=== PATIENT | female | born 1990 | race Caucasian/White ===

== ENCOUNTER 2016-08-19 16:09 | Outpatient (CLI) | payer BC ==
[2016-06-27 02:42] VITALS: BP 117/70
[2016-08-19 16:22] LABS: BASOPHILS % 0.4 (0.0-1.5); LYMPHOCYTES # 3.2 # k/uL (0.6-4.0); MEAN CORPUSCULAR HEMOGLOBIN 31.2 pg (28.0-34.0); MONOCYTES # 0.4 # k/uL (0.0-0.9); MONOCYTES % 4.1 % (0.0-11.0); NEUTROPHILS # 4.6 # k/uL (1.4-7.7)
[2016-08-19 16:46] LABS: eGFR (African) > 60; eGFR (Non-African) > 60
== END 2016-08-19 16:10 ==
LOC: LAB 16:09
PROVIDERS: ATTEND Family Medicine
DX: E53.8 Deficiency of other specified B group vitamins (principal); R20.0 Anesthesia of skin
CPT/HCPCS: 36415; 80053; 82607; 84443; 85025

== ENCOUNTER 2017-08-12 17:33 | Emergency (ER) | payer OTHER ==
[2017-08-12 17:50] VITALS: BP 132/84
[2017-08-12] MEDS ORDERED: PROMETHAZINE HCL 25 MG/ML VIAL IM ONE (17:53)
[2017-08-12] MEDS ORDERED: MAGNESIUM CITRATE 296 ML BOTTLE PO ONE (17:53)
[2017-08-12] MEDS ORDERED: diphenhydrAMINE HCL 50 MG/ML VIAL IM ONE (17:53)
[2017-08-12] MEDS ORDERED: KETOROLAC TROMETHAMINE 60 MG/2 ML VIAL IM ONE (17:53)
--- NOTE | 2017-08-12 17:53 | ED Physician Documentation ---
Headache - HISTORIAN Historian: patient - HPI Stated Complaint: Migraine/LLQ pain Chief Complaint: Headache Onset: hours (0500) Timing: worse, persistent New Gradual Onset: No Exposure To: none Severity: moderate Quality: similar to previous Associated Symptoms: sensitivity to light, nausea. denies: fever, chills, sweating, problems with vision, vomiting, neck pain, stiffness, speech problems , weakness, trouble walking, tingling, numbness, dizziness, light-headedness Exacerbated By: light, noise Further Comments: no (27 year old female patient presents with complaint of migraine, constipation and LLQ pain. Patient states she took ibuprofen this after noon with no improvement. Reports ESTRADA started this morning around 0500- 0530, c/o nausea, photophobia, denies vomiting. Last BM 4 days ago.) - ROS NEURO/PSYCH: denies: confusion, anxiety, depression, fainting, other EYES/ENT: denies: sore throat, difficulty swallowing, sinus pain, drainage, other CVS/RESP: none GI/: abdominal pain (LLQ) MS/SKIN/LYMPH: denies: muscle aches, back pain, rash, skin lesions, swollen glands, other all systems neg except as marked: No - PAST HX Medical History: other (fibromyalgia, PCOS, migraines, GERD, depression) Surgical History: cholecystectomy Allergies/Adverse Reactions: Allergies Allergy/AdvReac Type Severity Reaction Status Date / Time sumatriptan [From Imitrex] Allergy Severe Anaphylaxis Verified 08/12/17 17:47 sumatriptan succinate Allergy Severe Anaphylaxis Verified 08/12/17 17:47 [From Imitrex] codeine Allergy Intermediate Nausea/Vomi Verified 08/12/17 17:47 ting hydrocodone bitartrate Allergy Intermediate Nausea/Vomi Verified 08/12/17 17:47 [From Vicodin] ting Penicillins Allergy Intermediate Nausea/Vomi Verified 08/12/17 17:47 ting Home Medications: Ambulatory Orders Medication Instructions Recorded Omeprazole 40 mg PO DAILY 02/11/16 Levonorgestrel [Mirena] 1 each IY D 06/27/16 Clonazepam [Klonopin] 1 mg PO DAILY PRN u2 05/18/17 Escitalopram Oxalate [Lexapro] 20 mg PO DAILY u2 05/18/17 Lamotrigine [Lamictal] 400 mg PO DAILY u2 05/18/17 Verapamil HCl [Verapamil Sr] 1 tab PO HS 28 Days #28 05/18/17 Prochlorperazine Maleate 2 tab PO DAILY 08/12/17 [Compazine] - SOCIAL HX Smoking History: non-smoker - Family HX Family History: denies: none - VITAL SIGNS Vital Signs: Vital Signs Temp Pulse Resp BP Pulse Ox 98.6 F 96 H 14 132/84 98 08/12/17 18:11 08/12/17 18:11 08/12/17 18:11 08/12/17 18:11 08/12/17 18:11 - REVIEWED ASSESSMENTS Nursing Assessment Reviewed: Yes Vitals Reviewed: Yes Progress - Progress Progress: Medicated for constipation with magnesium citrate. Medicated for migraine with toradol, benadryl and phenergan IM. Patient picked up by her parents. ED Results Lab/Radiology - Orders Orders: ED Orders Category Date Time Status Ketorolac Tromethamine [Toradol] Med 08/12/17 17:53 Discontinued 60 mg IM NOW ONE Magnesium Citrate [Citrate of Magnesia] Med 08/12/17 17:53 Discontinued 150 ml PO NOW ONE Promethazine HCl [Phenergan] Med 08/12/17 17:53 Discontinued 25 mg IM NOW ONE diphenhydrAMINE HCL [Benadryl] Med 08/12/17 17:53 Discontinued 25 mg IM NOW ONE Headache Physical Exam - EXAM General Appearance: mild distress, other (no photophobia noted) EENT: no facial swelling, eyes nml inspection, PERRL, nml ENT, pharynx nml Respiratory: no resp distress, chest non-tender, breath sounds normal CVS: reg. rate & rhythm, heart sounds nml Abdomen: no organomegaly, nml bowel sounds, no distention, tenderness (mild c/o pain with palpation of LLQ) Skin: color nml, no rash, warm, nml palp., dry Extremitites: non-tender, normal range of motion, no evidence of injury, no edema, J, IN MOLD COATER - NEURO/PSYCH Higher Functions: alert, oriented x3, nml speech, mood/affect nml Cranial: nml as tested, no evidence of acute CVA Cerebellar: nml as tested, nml gait Sensorimotor: motor nml, sensation nml Discharge Clincal Impression: Migraine Qualifiers: Migraine type: without aura Status migrainosus presence: without status migrainosus Intractability: not intractable Qualified Code(s): G43.009 - Migraine without aura, not intractable, without status migrainosus Constipation Qualifiers: Constipation type: unspecified constipation type Qualified Code(s): K59.00 - Constipation, unspecified Referrals: Emerald Snow MD [Primary Care Provider] - 2 Days Additional Instructions: Rest in a cool dark room repeat 1/2 bottle of magnesium citrate in the morning if no results. Condition: Stable Disposition: 01 HOME, SELF-CARE Decision to Admit: NO Decision Time: 17:52
== END 2017-08-12 18:11 | disposition home or self-care (01) ==
LOC: ED 17:33
DX: K59.00 Constipation, unspecified (principal); G43.009 Migraine without aura, not intractable, without status migrainosus
CPT/HCPCS: 99282

== ENCOUNTER 2017-10-04 07:33 | Day surgery (SDC) | payer OTHER ==
--- NOTE | 2017-10-04 12:54 | GI Report ---
REFERRING PHYSICIAN: Dr. Emerald Snow CYCLE CONSULTANT: Thomas Norton MD PROCEDURE MEDICATION: Propofol as per anesthesia. INDICATIONS: This is a 27 year old who has been having persistent problems of regurgitation. This has been going on for years. It is particularly bad if she lies down and may occur during the day after meals. She denies dysphagia. She did stop smoking recently. She is 5 feet 7 inches and her weight is 113 kilograms and carries that centrally. She has had a previous cholecystectomy. She has been on gabapentin, Klonopin, melatonin, Lamictal and she is on omeprazole now at 40 mg daily. Her history is also positive for fibromyalgia and plantar fasciitis. PROCEDURE PERFORMED: Endoscopy with biopsies. PROCEDURE: An [employer] video endoscope was passed through the esophagus under direct visualization. She does have at least grade 2 esophagitis. No obvious Rivera' s. She does have a small hiatal hernia. The GE junction stays open susceptible to reflux. Biopsies were taken at the GE junction. The stomach is entered. She does have diffuse gastritis and a lot of bile present. Biopsies taken in the antrum for pathology. Duodenal bulb and first and second part of the duodenum exam were normal. FINDINGS: 1. Diffuse bile gastritis. 2. Esophagitis. 3. Lax GE junction. RECOMMENDATIONS: 1. Again, her PPI should be taken about a half hour before a meal either breakfast or supper. 2. She needs to sleep with her head of the bed elevated 3 or 4 inches. 3. Would take an antacid, such as Gaviscon, p.r.n. during the day and always at bedtime. 4. A 10 to 15 pound weight loss would markedly decrease intragastric pressure and frequently improves reflux. 5. Again, would stay away from tobacco products. 6. Follow up biopsies. cc: Dr. Emerald DAILY
== END 2017-10-04 07:35 ==
LOC: OPSURG 07:33
PROVIDERS: ATTEND Internal Medicine Gastroenterology
DX: K29.60 Other gastritis without bleeding (principal); K44.9 Diaphragmatic hernia without obstruction or gangrene; K20.9 Esophagitis, unspecified; Z90.49 Acquired absence of other specified parts of digestive tract
CPT/HCPCS: 81025; J2001; J2704; J7120; 43239; S1016

== ENCOUNTER 2017-12-10 17:41 | Emergency (ER) | payer OTHER ==
[2017-12-10] MEDS: BUPIVACAINE HCL/PF 5 MG/ML 10ML VIAL IJ ONE (18:16)
--- NOTE | 2017-12-10 18:47 | ED Physician Documentation ---
General Adult - HISTORIAN Historian: patient - HPI Stated Complaint: laceration Chief Complaint: Laceration/Recheck/Suture Additional Information: Cut finger on tea maker at work, just prior to arrival in ER. Last tetanus within two years. - ROS CONST: no problems - PAST HX Past History: other (fibromyalgia, migraines) Immunizations: tetanus, UTD Allergies/Adverse Reactions: Allergies Allergy/AdvReac Type Severity Reaction Status Date / Time sumatriptan [From Imitrex] Allergy Severe Anaphylaxis Verified 12/10/17 18:01 sumatriptan succinate Allergy Severe Anaphylaxis Verified 12/10/17 18:01 [From Imitrex] codeine Allergy Intermediate Nausea/Vomi Verified 12/10/17 18:01 ting hydrocodone bitartrate Allergy Intermediate Nausea/Vomi Verified 12/10/17 18:01 [From Vicodin] ting Penicillins Allergy Intermediate Nausea/Vomi Verified 12/10/17 18:01 ting Home Medications: Ambulatory Orders Medication Instructions Recorded Omeprazole 40 mg PO DAILY 02/11/16 Levonorgestrel [Mirena] 1 each IY D 06/27/16 Clonazepam [Klonopin] 1 mg PO DAILY PRN u2 05/18/17 Escitalopram Oxalate [Lexapro] 20 mg PO DAILY u2 05/18/17 Lamotrigine [Lamictal] 400 mg PO DAILY u2 05/18/17 Verapamil HCl [Verapamil Sr] 240 tab PO HS 28 Days #28 05/18/17 - SOCIAL HX Smoking History: non-smoker - FAMILY HX Family History: No - VITAL SIGNS Vital Signs: Vital Signs Temp Pulse Resp BP Pulse Ox 98.4 F 84 22 146/109 97 12/10/17 17:56 12/10/17 17:56 12/10/17 17:56 12/10/17 17:56 12/10/17 17:56 - REVIEWED ASSESSMENTS Nursing Assessment Reviewed: Yes Vitals Reviewed: Yes Procedures Wound Location: upper extremity Wound Length: 2 Wound's Depth, Shape: irregular, flap Wound Explored: clean Betadine Prep?: No (chlorhexadine) Anesthesia: 0.5% Sensorcaine Volume of Anesthetic: 3 Wound Repaired With: sutures Suture Size/Type: 4:0, nylon Number of Sutures: 4 Layer Closure?: No Sterile Dressing Applied?: Yes Splint Applied?: Yes Type of Splint Applied: alukmifoam Sling Applied?: No ED Results Lab/Radiology - Orders Orders: ED Orders Category Date Time Status Apply occlusive dressing D Care 12/10/17 18:45 Ordered Finger Splint 1T Care 12/10/17 18:45 Ordered Bupivacaine HCl/Pf [Marcaine 0.5%] Med 12/10/17 18:07 Discontinued 50 mg IJ NOW ONE Neomycin/Bacitracin/Polymyxinb [Triple Antibiotic Med 12/10/17 18:45 Once Ointment] 1 each TP NOW ONE General Adult Physical Exam - PHYSICAL EXAM GENERAL APPEARANCE: mild distress EENT: eye inspection normal, ENT inspection normal NECK: normal inspection RESPIRATORY: no resp distress BACK: other (movements w/o pain) SKIN: warm/dry, normal color, other (2 cm lac right 2nd finger, distal phalanx, dorsal surface) EXTREMITIES: no evidence of injury (ezxcept right 2nd finger. Full ROM end left finger) NEURO: CN's nml as tested, motor nml, sensation nml, cognition normal Discharge Clincal Impression: Finger laceration Referrals: Emerald Snow MD [Primary Care Provider] - 2 Days Additional Instructions: Keep the right hand elevated to the level of your waist or higher for at least 3 days to minimize bleeding and swelling and discomfort. Keep the stitches clean and dry. After 24 hours, you can wash your hands or shower, but do not soak the stitches. Ask your provider to remove the stitches in 7 days. Return to the ER immediately if the finger seems to be infected. Condition: Good Disposition: 01 HOME, SELF-CARE Decision to Admit: NO Decision Time: 18:50
[2017-12-10] MEDS: NEOMYCIN/BACITRACIN/POLYMYXINB 1 EACH OINT.PACK TP ONE (18:50)
[2017-12-10 19:02] VITALS: BP 132/87
== END 2017-12-10 19:01 | disposition home or self-care (01) ==
LOC: ED 17:41
DX: S61.210A Laceration without foreign body of right index finger without damage to nail, initial encounter (principal); X58.XXXA Exposure to other specified factors, initial encounter; Y92.9 Unspecified place or not applicable; Y93.G3 Activity, cooking and baking; Y99.9 Unspecified external cause status; Z04.2 Encounter for examination and observation following work accident
CPT/HCPCS: 12001; 96372; J3490

== ENCOUNTER 2018-07-14 12:52 | Emergency (ER) | payer OTHER ==
[2018-07-14 13:07] VITALS: BP 127/94
--- NOTE | 2018-07-14 13:15 | ED Physician Documentation ---
Headache - HISTORIAN Historian: patient - HPI Stated Complaint: migraine Chief Complaint: Headache Onset: days ago (1) Timing: still present New Gradual Onset: No Exposure To: none Severity: moderate Quality: similar to previous Associated Symptoms: nausea. denies: fever, chills, vomiting, speech problems, dizziness Preceding Symptoms: visual disturbance Further Comments: yes (She has a long history of migraines and her treatment was some type of injection which she states had the migraines controlled however recently her insurance changed and the injections were denied and she has had an increase in symptoms. She states she tried all her home abortive therapy with no improvement. No head injury. No fever. She has nausea no vomiting) Last known Well Code/Unknown Code: Unknown - ROS NEURO/PSYCH: anxiety, depression CVS/RESP: denies: chest pain, shortness of breath GI/: denies: problems urinating MS/SKIN/LYMPH: denies: rash all systems neg except as marked: Yes - PAST HX Medical History: other (fibromyalgia and migraines ) Allergies/Adverse Reactions: Allergies Allergy/AdvReac Type Severity Reaction Status Date / Time sumatriptan [From Imitrex] Allergy Severe Anaphylaxis Verified 07/14/18 13:01 sumatriptan succinate Allergy Severe Anaphylaxis Verified 07/14/18 13:01 [From Imitrex] codeine Allergy Intermediate Nausea/Vomi Verified 07/14/18 13:01 ting hydrocodone bitartrate Allergy Intermediate Nausea/Vomi Verified 07/14/18 13:01 [From Vicodin] ting Penicillins Allergy Intermediate Nausea/Vomi Verified 07/14/18 13:01 ting Home Medications: Ambulatory Orders Medication Instructions Recorded Verapamil HCl [Verapamil Sr] 240 tab PO HS 28 Days #28 05/18/17 Esomeprazole Magnesium 20 mg PO DAILY 03/01/18 Loratadine [Claritin] 10 mg PO DAILY u2 03/01/18 Prochlorperazine Maleate 10 mg PO TID u2 03/01/18 Zonisamide 25 mg PO BID av 03/01/18 Clonazepam 1 tab PO PRN PRN 07/14/18 Gabapentin [Neurontin] 1 tab PO TID 07/14/18 Vilazodone HCl [Viibryd] 1 tab PO DAILY 07/14/18 - SOCIAL HX Smoking History: non-smoker Alcohol Use: none Drug Use: none - Family HX Family History: none - VITAL SIGNS Vital Signs: Vital Signs Temp Pulse Resp BP Pulse Ox 97.1 F L 89 15 127/94 96 07/14/18 14:30 07/14/18 14:30 07/14/18 14:30 07/14/18 14:30 07/14/18 14:30 - REVIEWED ASSESSMENTS Nursing Assessment Reviewed: Yes Vitals Reviewed: Yes Progress - Progress Progress: 1405: symptoms are improving. Plan to discharge agreeable DG ED Results Lab/Radiology - Lab Results Lab Results: Lab Results 07/14/18 07/14/18 13:27 13:17 WBC 9.70 K/ul K/ul (4.00-12.00) RBC 4.68 M/ul M/ul (3.90-5.20) Hgb 14.2 g/dL g/dL (12.0-16.0) Hct 42.8 % % (34.5-46.5) MCV 92.0 fl fl (80.0-100.0) MCH 30.3 pg pg (28.0-34.0) MCHC 33.1 g/dL g/dL (30.0-36.0) RDW 12.7 % % (11.3-14.3) Plt Count 347 K/mm3 K/mm3 (130-400) Neut % (Auto) 54.3 % % (39.0-79.0) Lymph % (Auto) 32.8 % % (16.0-50.0) Beauregard % (Auto) 7.0 % % (0.0-11.0) Eos % (Auto) 5.4 % % (0.0-6.8) Baso % (Auto) 0.5 (0.0-1.5) Neut # (Auto) 5.3 # k/uL # k/uL (1.4-7.7) Lymph # (Auto) 3.2 # k/uL # k/uL (0.6-4.0) Bea[place]gard # (Auto) 0.7 # k/uL # k/uL (0.0-0.9) Eos # (Auto) 0.5 # k/uL # k/uL (0.0-0.6) Baso # (Auto) 0.1 # k/uL # k/uL (0.0-0.5) Sodium 141 mmol/L mmol/L (136-145) Potassium 4.2 mmol/L mmol/L (3.5-5.1) Chloride 108 mmol/L H mmol/L (98-107) Carbon Dioxide 24 mmol/L mmol/L (22-30) BUN 8 mg/dL mg/dL (7-17) Creatinine 0.70 mg/dL mg/dL (0.52-1.04) Estimated Creat Clear 264 Est GFR ( Amer) > 60 (60 - ) Est GFR (Non-Af Amer) > 60 (60 - ) Glucose 105 mg/dL mg/dL (74-106) Calcium 9.0 mg/dL mg/dL (8.4-10.2) Total Bilirubin 0.3 mg/dL mg/dL (0.2-1.3) AST 44 U/L U/L (15-46) ALT 39 U/L U/L (13-69) Alkaline Phosphatase 98 U/L U/L (38-126) Total Protein 6.8 g/dL g/dL (6.3-8.2) Albumin 4.4 g/dL g/dL (3.5-5.0) - Orders Orders: ED Orders Category Date Time Status IV Started NOW Care 07/14/18 13:17 Active CBC/PLATELET/DIFF Stat Lab 07/14/18 13:17 Completed CMP Stat Lab 07/14/18 13:27 Completed 0.9 % Sodium Chloride [Normal Saline] 500 ml Med 07/14/18 13:17 Discontinued IV NOW Dexamethasone Sodium Phosphate [Decadron] Med 07/14/18 13:17 Discontinued 4 mg IVP NOW ONE Ketorolac Tromethamine [Toradol] Med 07/14/18 13:18 Discontinued 30 mg IVP NOW ONE Ondansetron HCl/Pf [Zofran 4 mg/2 ml] Med 07/14/18 13:18 Discontinued 4 mg IVP NOW ONE Headache Physical Exam - EXAM General Appearance: no acute distress, alert EENT: no facial swelling, PERRL, nml ENT, pharynx nml. No: pain over sinuses Respiratory: no resp distress, chest non-tender, breath sounds normal CVS: reg. rate & rhythm, heart sounds nml Abdomen: non-tender Skin: color nml, no rash Extremitites: non-tender, normal range of motion, no evidence of injury, no edema - NEURO/PSYCH Higher Functions: alert, oriented x3 Cranial: nml as tested Sensorimotor: motor nml, sensation nml Discharge Clincal Impression: Migraine aura without headache Referrals: Emerald Snow MD [Primary Care Provider] - 2 Days Comments: 1. Continue meds at home for migraine 2. Notify PCP of increasing migraine and decrease in med effectiveness 3. Increase fluids 4. Return to ER for any concerns Condition: Stable Disposition: 01 HOME, SELF-CARE Decision to Admit: NO Date of Decison to Admit: 07/14/18 Decision Time: 14:08
[2018-07-14] MEDS ORDERED: 0.9 % SODIUM CHLORIDE 500 ML IV ONE (13:17)
[2018-07-14] MEDS ORDERED: DEXAMETHASONE SOD PHOS 4 MG/ML VIAL IVP ONE (13:17)
[2018-07-14] MEDS ORDERED: KETOROLAC TROMETHAMINE 30 MG/1ML VIAL IVP ONE (13:18)
[2018-07-14] MEDS ORDERED: ONDANSETRON HCL/PF 4 MG/ 2ML VIAL IVP ONE (13:18)
[2018-07-14 13:44] LABS: MEAN CORPUSCULAR HEMOGLOBIN 30.3 pg (28.0-34.0)
[2018-07-14 13:46] LABS: BASOPHILS % 0.5 (0.0-1.5); EOSINOPHILS % 5.4 % (0.0-6.8); NEUTROPHILS # 5.3 # k/uL (1.4-7.7)
[2018-07-14 14:17] LABS: eGFR (Non-African) > 60
== END 2018-07-14 14:30 | disposition home or self-care (01) ==
LOC: ED 12:52
DX: G43.009 Migraine without aura, not intractable, without status migrainosus (principal)
CPT/HCPCS: 36415; 80053; 85025; 96365; 96375; 99282; 99284; J1100; J1885; J2405; J7060; S1016

== ENCOUNTER 2018-09-12 01:42 | Emergency (ER) | payer OTHER ==
[2018-09-12 02:09] VITALS: BP 115/74
--- NOTE | 2018-09-12 02:17 | ED Physician Documentation ---
Upper Respiratory Symptoms - HISTORIAN Historian: patient - HPI Stated Complaint: sinus congestion,rash on left leg Chief Complaint: Cough/ Upper Respiratory Additional Information: Patient presents to ER with a 5 day history of cough, nasal congestion, sinus pressure and nausea. She also states she use Stein on her legs and has a chemical burn from it. Onset: days ago (5) Duration: constant Context: denies: recent foreign travel Associated Symptoms: chills, runny nose, sinus pain Further Comments: no - ROS CONST/EYES: denies: weakness CVS/RESP: denies: shortness of breath LYMPH: denies: swollen glands GI/: nausea NEURO/PSYCH: denies: dizziness MS/SKIN: muscle aches - PAST HX Lung Disease: none PE Risk Factors: none Surgeries/Procedures: none Allergies/Adverse Reactions: Allergies Allergy/AdvReac Type Severity Reaction Status Date / Time sumatriptan [From Imitrex] Allergy Severe Anaphylaxis Verified 09/12/18 02:16 sumatriptan succinate Allergy Severe Anaphylaxis Verified 09/12/18 02:16 [From Imitrex] codeine Allergy Intermediate Nausea/Vomi Verified 09/12/18 02:16 ting hydrocodone bitartrate Allergy Intermediate Nausea/Vomi Verified 09/12/18 02:16 [From Vicodin] ting Penicillins Allergy Intermediate Nausea/Vomi Verified 09/12/18 02:16 ting Home Medications: Ambulatory Orders Medication Instructions Recorded Verapamil HCl [Verapamil Sr] 240 tab PO HS 28 Days #28 05/18/17 Gabapentin [Neurontin] 1 tab PO TID 07/14/18 Vilazodone HCl [Viibryd] 1 tab PO DAILY 07/14/18 Aripiprazole [Abilify] 10 mg PO DAILY 09/12/18 Levofloxacin [Levaquin] 500 mg PO DAILY #5 tablet 09/12/18 Ondansetron HCl Rapdis [Zofran Odt] 4 mg PO Q8 PRN #15 tab 09/12/18 Thyroid,Pork [[place] Thyroid] 30 mg PO DAILY 09/12/18 - SOCIAL HX Smoking History: non-smoker Alcohol Use: none Drug Use: none - FAMILY HX Family History: none - VITAL SIGNS Vital Signs: Vital Signs Temp Pulse Resp BP Pulse Ox 97.5 F L 91 H 18 115/74 96 09/12/18 01:43 09/12/18 01:43 09/12/18 01:43 09/12/18 01:43 09/12/18 01:43 - REVIEWED ASSESSMENTS Nursing Assessment Reviewed: Yes Vitals Reviewed: Yes ED Results Lab/Radiology - Orders Orders: ED Orders Category Date Time Status Levofloxacin [Levaquin] Med 09/12/18 02:18 Once 500 mg PO NOW ONE Ondansetron HCl Rapdis [Zofran Odt] Med 09/12/18 02:18 Once 4 mg PO NOW ONE Upper Respiratory Symptoms - EXAM General Appearance: alert EENT: pain over sinuses, maxillary Neck: normal inspection, supple Respiratory: no resp. distress, breath sounds nml, speaks full sentences. No: respiratory distress Abdomen: non-tender, nml bowel sounds, no distention CVS: reg rate & rhythm, heart sounds normal Skin: warm,dry Extremities: non-tender, normal range of motion Neuro/Psych: oriented x3, mood/affect nml Discharge Clincal Impression: Acute maxillary sinusitis Qualifiers: Recurrence: non-recurrent Qualified Code(s): J01.00 - Acute maxillary sinusitis, unspecified Prescriptions: Levofloxacin [Levaquin] 500 mg PO DAILY #5 tablet Ondansetron HCl Rapdis [Zofran Odt] 4 mg PO Q8 PRN #15 tab PRN Reason: nausea/vomiting Referrals: Emerald Snow MD [Primary Care Provider] - 2 Days Condition: Stable Disposition: 01 HOME, SELF-CARE Decision to Admit: NO Date of Decison to Admit: 09/12/18 Decision Time: 02:26
[2018-09-12] MEDS: ONDANSETRON HCL 4 MG TAB.RAPDIS PO ONE (02:23)
[2018-09-12] MEDS: LEVOFLOXACIN 500 MG TABLET PO ONE (02:23)
== END 2018-09-12 02:25 | disposition home or self-care (01) ==
LOC: ED 01:42
DX: J01.00 Acute maxillary sinusitis, unspecified (principal)
CPT/HCPCS: 99283; A9270

== ENCOUNTER 2018-10-27 14:11 | Outpatient (CLI) | payer OTHER ==
--- NOTE | 2018-11-01 21:46 | CONSULTATION REPORT ---
SUBJECTIVE: Arelis Gates is a 28-year-old female who presented to the clinic today for a first visit with me for an ingrown toenail on her right great toe. The patient states that she has had this for a little bit and has repeatedly over the years had multiple times ingrown toenails to the right great toe and the left great toe. The patient does not admit to any drainage, purulence or anything of that nature at this time. She does admit to pain, though, in the medial border of the right great toenail. She does not admit to any fevers, chills, nausea, vomiting, shortness of breath or chest pain. She denies being diabetic. SHE DOES ADMIT TO ALLERGIES SUCH IMITREX, PENICILLINS, CODEINE, AND VICODIN. OBJECTIVE: Vitals: Temperature 97.9 degrees Fahrenheit, heart rate 90, respiration rate 16, blood pressure 128/80. O2 saturation is 97% on room air. Vascular: 2+ DP and PT pulses, right foot. Capillary refill time is less than 3 seconds to the great toe, right foot. There is mild edema noted on the medial border of the right great toenail. Dermatologic: There is no purulence, malodor, erythema or ecchymosis noted right great toe or right foot at all. There is no open wound. There is slight incurvation perhaps of the medial border of the right great toenail. Musculoskeletal: There is pain on palpation noted of the right great toenail, medial border. There is no pain on palpation noted elsewhere on the right or left foot. There are no other gross abnormalities noted at this time. Neurologic: Light touch sensation is intact to the toes, bilateral feet. ASSESSMENT AND PLAN: Onychocryptosis, right hallux, medial border. The risks and benefits of the procedure including bleeding, infection and recurrence of ingrown toenail were discussed with the patient as well as options for a temporary versus permanent partial nail avulsion and the patient agreed both by written and verbal consent to go forward with a partial nail avulsion with chemical matrixectomy of the right great toenail, medial border. PROCEDURE #1: Partial nail avulsion with chemical matrixectomy of the right great toe medial border performed. An alcohol swab was utilized to cleanse the toe and 7 mL of a 1:1 mix of 2% lidocaine plain and 0.5% Marcaine plain were injected into the right great toe. The foot was then cleansed with Betadine prep and then exsanguinated and a tourniquet was applied to the right great toe. At this time a partial nail avulsion was performed on the medial border followed by phenol application in increments of 45 seconds, 30 seconds and 30 seconds, totaling 3 applications. The tourniquet was then released and a prompt hyperemic response was noted to the right great toe. 70% isopropyl alcohol was then used to flush out the acid in its entirety over the right great toe as well as the distal medial foot. The site was then cleansed with gauze and dressings applied consisting of Silvadene in the wound base, 4x4 gauze, 2 inch Judy and 1 inch Coban beginning on the toe and ending on the distal forefoot to help hold it on the toe. Instructions both written and verbal were given to the patient regarding postprocedure care. Return to the clinic for follow-up office visit in 1 week in the [facility] for follow-up of the procedure and also for further discussion of any other foot problems that she would like to discuss, as she has requested. We will then see the patient likely 2 or 3 weeks after that to follow up on the right great toe procedure site. The patient had no further questions and was grateful for the visit today. Carlos WhitakerP.M. (Dictated/Not Signed) Sophy Job#: [id number] MTDD
== END 2018-10-27 14:13 ==
LOC: POD 14:11
PROVIDERS: ATTEND Podiatrist Foot & Ankle Surgery
DX: L60.0 Ingrowing nail (principal)
CPT/HCPCS: 11730; 99212; A4554

== ENCOUNTER 2018-11-05 05:07 | Emergency (ER) | payer OTHER ==
[2018-11-05] MEDS: ONDANSETRON HCL 4 MG TAB.RAPDIS PO ONE (05:45)
[2018-11-05] MEDS: diphenhydrAMINE HCL 25 MG TABLET PO ONE (05:45)
[2018-11-05] MEDS: KETOROLAC TROMETHAMINE 60 MG/2 ML VIAL IM ONE (05:45)
--- NOTE | 2018-11-05 05:59 | ED Physician Documentation ---
Headache - HISTORIAN Historian: patient - HPI Stated Complaint: "I have a migraine" Chief Complaint: Headache Onset: days ago Timing: worse Severity: moderate Quality: similar to previous, tightness Associated Symptoms: nausea Exacerbated By: light, noise, movement - ROS NEURO/PSYCH: denies: confusion, anxiety, depression, fainting, other EYES/ENT: denies: sore throat, difficulty swallowing, sinus pain, drainage, other CVS/RESP: none GI/: denies: abdominal pain, diarrhea, problems urinating, incontinence, other MS/SKIN/LYMPH: denies: muscle aches, back pain, rash, skin lesions, swollen glands, other all systems neg except as marked: Yes - PAST HX Medical History: migraines, other (tachycardia) Surgical History: cholecystectomy Allergies/Adverse Reactions: Allergies Allergy/AdvReac Type Severity Reaction Status Date / Time sumatriptan [From Imitrex] Allergy Severe Anaphylaxis Verified 11/05/18 05:20 sumatriptan succinate Allergy Severe Anaphylaxis Verified 11/05/18 05:20 [From Imitrex] codeine Allergy Intermediate Nausea/Vomi Verified 11/05/18 05:20 ting hydrocodone bitartrate Allergy Intermediate Nausea/Vomi Verified 11/05/18 05:20 [From Vicodin] ting Penicillins Allergy Intermediate Nausea/Vomi Verified 11/05/18 05:20 ting Home Medications: Ambulatory Orders Medication Instructions Recorded Verapamil HCl [Verapamil Sr] 240 tab PO HS 28 Days #28 05/18/17 Gabapentin [Neurontin] 1 tab PO TID 07/14/18 Vilazodone HCl [Viibryd] 1 tab PO DAILY 07/14/18 Aripiprazole [Abilify] 10 mg PO DAILY 09/12/18 Ondansetron HCl Rapdis [Zofran Odt] 4 mg PO Q6 PRN #30 tab 11/05/18 - SOCIAL HX Smoking History: cigarettes - Family HX Family History: denies: none - VITAL SIGNS Vital Signs: Vital Signs Temp Pulse Resp BP Pulse Ox 98.2 F 67 12 116/72 99 11/05/18 06:10 11/05/18 06:10 11/05/18 06:10 11/05/18 06:10 11/05/18 06:10 - REVIEWED ASSESSMENTS Nursing Assessment Reviewed: Yes Vitals Reviewed: Yes Progress - Progress Progress: Patient is familiar to this provider; she has done very well with fluids, toradol, Benadryl and antiemetic in the past. patient requesting "what you did last time". At discharge - headache improved; reviewed discharge instructions; verbalized understanding. ED Results Lab/Radiology - Orders Orders: ED Orders Category Date Time Status Ketorolac Tromethamine [Toradol] Med 11/05/18 05:40 Discontinued 60 mg IM NOW ONE Ondansetron HCl Rapdis [Zofran Odt] Med 11/05/18 05:40 Discontinued 4 mg PO NOW ONE diphenhydrAMINE HCL [Benadryl] Med 11/05/18 05:40 Discontinued 25 mg PO NOW ONE Headache Physical Exam - EXAM General Appearance: moderate distress EENT: no facial swelling, eyes nml inspection, PERRL, nml ENT, pharynx nml, other (photophobia) Respiratory: no resp distress, chest non-tender, breath sounds normal CVS: reg. rate & rhythm, heart sounds nml Abdomen: non-tender, no organomegaly, nml bowel sounds, no distention Skin: color nml, no rash, warm, nml palp., dry - NEURO/PSYCH Higher Functions: alert, oriented x3, nml speech, mood/affect nml Cranial: nml as tested, no evidence of acute CVA Cerebellar: nml as tested, nml gait Sensorimotor: motor nml, sensation nml Discharge Clincal Impression: Migraine Qualifiers: Migraine type: without aura Status migrainosus presence: without status migrainosus Intractability: not intractable Qualified Code(s): G43.009 - Migra ine without aura, not intractable, without status migrainosus Prescriptions: Ondansetron HCl Rapdis [Zofran Odt] 4 mg PO Q6 PRN #30 tab PRN Reason: Nausea / Vomiting Referrals: Joss Peña MD [Primary Care Provider] - 2 Days Additional Instructions: Rest in a cool dark room. 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 Condition: Stable Disposition: 01 HOME, SELF-CARE Decision to Admit: NO Decision Time: 06:00
[2018-11-05 06:16] VITALS: BP 116/72
== END 2018-11-05 06:15 | disposition home or self-care (01) ==
LOC: ED 05:07
DX: G43.909 Migraine, unspecified, not intractable, without status migrainosus (principal)
CPT/HCPCS: 96372; 99283; 99284; A9270; J1885; Q0163

== ENCOUNTER 2018-12-31 10:00 | Emergency (ER) | payer OTHER ==
[2018-12-31 10:16] VITALS: BP 134/84
--- NOTE | 2018-12-31 11:01 | ED Physician Documentation ---
Headache - HISTORIAN Historian: patient - HPI Stated Complaint: headache Chief Complaint: Headache Additional Information: 28yo female whostates [place] ahs ahd migrain headaches for years. Occurrs 3-4 times a week. Has had one for 3 days and not getting better. Has been using Ibuprofem, benaldry and zofran . Patient has a headache on the right temporal area, having some nausea and vomiting. No head truama recently. Onset: days ago (3 days) Timing: gradual Exposure To: denies: CO exposure, tick bite(s), recent head injury Severity: moderate Quality: similar to previous (more intense), throbbing Associated Symptoms: denies: fever, chills Exacerbated By: light, movement Further Comments: no - ROS NEURO/PSYCH: denies: confusion EYES/ENT: denies: sore throat, sinus pain CVS/RESP: denies: chest pain, shortness of breath, cough MS/SKIN/LYMPH: denies: muscle aches, rash - PAST HX Medical History: other (fibromyalgia) Surgical History: cholecystectomy Immunizations: referred to PCP Allergies/Adverse Reactions: Allergies Allergy/AdvReac Type Severity Reaction Status Date / Time sumatriptan [From Imitrex] Allergy Severe Anaphylaxis Verified 12/31/18 10:16 sumatriptan succinate Allergy Severe Anaphylaxis Verified 12/31/18 10:16 [From Imitrex] codeine Allergy Intermediate Nausea/Vomi Verified 12/31/18 10:16 ting hydrocodone bitartrate Allergy Intermediate Nausea/Vomi Verified 12/31/18 10:16 [From Vicodin] ting Penicillins Allergy Intermediate Nausea/Vomi Verified 12/31/18 10:16 ting Home Medications: Ambulatory Orders Medication Instructions Recorded Verapamil HCl [Verapamil Sr] 240 tab PO HS 28 Days #28 05/18/17 Gabapentin [Neurontin] 1 tab PO TID 07/14/18 Vilazodone HCl [Viibryd] 1 tab PO DAILY 07/14/18 Aripiprazole [Abilify] 10 mg PO DAILY 09/12/18 Ondansetron HCl Rapdis [Zofran Odt] 4 mg PO Q6 PRN #30 tab 11/05/18 - SOCIAL HX Smoking History: less than 1 pack/day Alcohol Use: none Drug Use: none - Family HX Family History: none - VITAL SIGNS Vital Signs: Vital Signs Temp Pulse Resp BP Pulse Ox 98.7 F 89 19 134/84 97 12/31/18 10:12 12/31/18 10:12 12/31/18 10:12 12/31/18 10:12 12/31/18 10:12 ED Results Lab/Radiology - Orders Orders: ED Orders Category Date Time Status Ketorolac Tromethamine [Toradol] Med 12/31/18 11:03 Discontinued 60 mg IM NOW ONE Ondansetron HCl Rapdis [Zofran Odt] Med 12/31/18 11:03 Discontinued 4 mg PO NOW ONE diphenhydrAMINE HCL [Benadryl] Med 12/31/18 11:03 Discontinued 25 mg PO NOW ONE Headache Physical Exam - EXAM General Appearance: alert, mild distress EENT: no facial swelling, eyes nml inspection, PERRL, nml ENT. No: tender temporal artery, pain over sinuses, pale conjunctivae, abnml fundi, abnml papilledema, unequal pupils Neck: normal inspection, supple. No: lymphadenopathy, stiff neck Respiratory: no resp distress, chest non-tender, breath sounds normal. No: wheezes, rales, rhonchi CVS: reg. rate & rhythm, heart sounds nml Skin: color nml, no rash - NEURO/PSYCH Higher Functions: alert, oriented x3, nml speech, mood/affect nml Cranial: nml as tested, no evidence of acute CVA Cerebellar: nml as tested Sensorimotor: motor nml, sensation nml Discharge Clincal Impression: Migraine Qualifiers: Migraine type: without aura Status migrainosus presence: without status migrainosus Intractability: not intractable Qualified Code(s): G43.009 - Migraine without aura, not intractable, without status migrainosus Referrals: Joss Peña MD [Primary Care Provider] - 2 Days Additional Instructions: Home and rest. Work excuse given for today. Continue with present meds for treatment of your reoccurring headaches. Condition: Stable Disposition: 01 HOME, SELF-CARE Decision to Admit: NO Date of Decison to Admit: 12/31/18 Decision Time: 11:39
[2018-12-31] MEDS: KETOROLAC TROMETHAMINE 60 MG/2 ML VIAL IM ONE (11:19)
[2018-12-31] MEDS: diphenhydrAMINE HCL 25 MG TABLET PO ONE (11:19)
[2018-12-31] MEDS: ONDANSETRON HCL 4 MG TAB.RAPDIS PO ONE (11:19)
== END 2018-12-31 11:50 | disposition home or self-care (01) ==
LOC: ED 10:00
DX: G43.909 Migraine, unspecified, not intractable, without status migrainosus (principal)
CPT/HCPCS: 96372; 99282; 99284; A9270; J1885; Q0163

== ENCOUNTER 2019-01-19 08:51 | Outpatient (CLI) | payer OTHER ==
--- NOTE | 2019-01-24 10:19 | OP Clinic Progress Note ---
DATE OF VISIT: 01/19/2019 SUBJECTIVE: Arelis Gates is a 28-year-old female presenting to clinic today with her mother in the room. She is here for follow up of a recent right great toenail medial nail border partial nail avulsion with chemical matrixectomy. On our last visit it was improving greatly and she is having no pain at this time. She does admit to having plantar fasciitis/heel pain that we have discussed previously. She is having this to both heels, but mainly on the left still. She has been doing stretching exercises, inserts, ibuprofen, night splint and she feels that she may be having slight improvement, but she is still having significant pain especially first step out of bed in the mornings. She does admit that if she takes a break during the day and gets off of it. She is then usually pretty good for the rest of the day. She does not admit to any fever, chills, nausea, vomiting, shortness of breath or chest pain at this time. She does not admit to any itching or problems in the feet or heels at this time. She does not admit to any allergies that would be part of the steroid injection. The patient also states that she is having some increased pain on the left great toenail medial border. It is along the entire aspect of the nail edge on the medial border. The patient does not want to have this treated yet as she would like to focus on the heels right now and we will consider doing procedure on this area later. OBJECTIVE: Vitals: Temperature 98.7 degrees Fahrenheit, heart rate 88, respiration rate 18, blood pressure 130/78. O2 saturation is 98% on room air. Vascular: A 2+ DP and PT pulses, bilateral feet. Capillary refill time is less than 3 seconds to the toes bilaterally. There is no edema noted bilaterally. Dermatologic: There is slight pink irritation at the medial border of the left great toenail. There are no other concerning areas on the right great toenail area or anywhere else. There are no other open lesions or erythema or ecchymosis noted. Musculoskeletal: There is pain on palpation noted significantly at the plantar medial calcaneal tubercle of bilateral heels. The left is slightly more painful than the right. There is some pain on palpation along the medial border of the left great toenail along with entire medial border of the nail. There are no other gross abnormalities noted bilaterally. Per exam today the ankle dorsiflexion on the right is at about 10 degrees with the knee extended and only about 5 degrees to the left with the knee extended and again both improved with the knee flexed bilaterally an additional 5 degrees or so. The left is still less stretched out than the right. Neurologic: Light touch sensation is intact to the toes bilaterally. ASSESSMENT AND PLAN: 1. Plantar fasciitis, bilateral heels. 2. Follow up of right hallux medial nail border partial nail avulsion with chemical matrixectomy (post procedure). 3. New onset onychocryptosis of the left hallux medial nail border. Risk and benefits of the procedure including bleeding, infection steroid flare were discussed with the patient and consent obtained for her steroid injections of the left and right heels today. The consent was signed and placed in the chart. PROCEDURE #1 and #2: A steroid injection into the left and right plantar fascia origin was performed today without incident. Alcohol swab was utilized to cleanse the plantar medial calcaneal tubercle area and an injection consisting of 1 cc of 2% Lidocaine plain, 1 cc of 0.5% Marcaine plain, 0.5 cc of dexamethasone 4 mg/mL and 0.5 cc of Kenalog 40 mg/mL was injected into the right heel area. This then had hemostasis obtained with pressure and a Band-Aid was applied. An identical procedure was performed on the left plantar medial calcaneal tubercle area. This is not a procedure, but a very small slant-back trimming of the left great toenail medial nail edge was performed today to try and provide some relief in the meantime and a triple antibiotic ointment and a Band-Aid was applied there and was encouraged to be used and changed daily for three or four days just to protect the rough skin where the nail was removed from. The patient has no further questions or concerns and we will plan on seeing the patient for a follow-up visit in three to four weeks at the clinic for follow up of the heel injections. The patient was encouraged to come and see me sooner here in outpatient if she chooses to have a procedure done on the left great toenail medial border if this slant-back trimming does not help enough. The patient has no further questions or concerns and we will see her in three to four weeks. She tolerated the procedures beautifully today. Carlos WhitakerPSunilM.(Dictated/not signed) /[employer] [id number] /mab MTDD
== END 2019-01-19 09:20 ==
LOC: POD 08:51
PROVIDERS: ATTEND Podiatrist Foot & Ankle Surgery
DX: M72.2 Plantar fascial fibromatosis (principal); L60.0 Ingrowing nail; Z09 Encounter for follow-up examination after completed treatment for conditions other than malignant neoplasm

== ENCOUNTER 2019-03-23 13:07 | Outpatient (CLI) | payer OTHER ==
--- NOTE | 2019-03-27 16:48 | OP Clinic Progress Note ---
DATE OF VISIT: 03/23/2019 SUBJECTIVE: Arelis is a 29-year-old female presenting to the clinic today for a follow up of left plantar fasciitis and left gastrocnemius equinus. The patient has been trying a night splint which seems to be too large according to her and she has been doing lots of stretching, etc., and is still having a difficult time getting her left heel to feel better. Her right heel is doing great since the bilateral heel injections done about two months ago. The left heel, however, has continued to have lots of pain. It got better for a little bit but then became just as bad soon after. She does not admit to any other issues and does not admit to any fevers, chills, nausea, vomiting, shortness of breath or chest pain. She is here for a repeat steroid injection in the left plantar fascia as discussed earlier this week in clinic. OBJECTIVE: Vitals: Temperature 98.0 degrees Fahrenheit, heart rate 93, respiration rate 16, blood pressure 107/69. O2 saturation is 97% on room air. Vascular: 2+ DP and PT pulses, left foot. Capillary refill time is less than 3 seconds to the toes of the left foot. Mild edema noted left heel still. Dermatologic: There is no erythema or ecchymosis or open lesions or hyperkeratosis noted. No other concerning skin lesions are noted in the left lower extremity. Musculoskeletal: Pain on palpation is still quite moderate to severe at the plantar medial left heel and centrally slightly. There is no pain at the posterior left heel. The patient also has limited ankle dorsiflexion to about 0 to 2 degrees in the left foot with the knee extended. There are no other gross abnormalities noted in the left foot. Neurologic: Light touch sensation is intact to the toes, left foot. The right was not examined today. ASSESSMENT AND PLAN: 1. Plantar fasciitis left heel M72.2. 2. Gastrocnemius equinus, left lower extremity M21.6X2. 3. Gastrocnemius equinus, right lower extremity M21.6X1. PROCEDURE #1: Steroid injection to the left heel plantar fascia was performed today. Risks and benefits were discussed including bleeding, infection, steroid flare and the patient understood these and has agreed both by written and verbal consent to go forward with the steroid injection into the left heel plantar fascia medial band area at this time. Alcohol swab was utilized to cleanse the skin at the injection site and an injection consisting of 1 cc of 2% lidocaine plain, 1 cc of 0.5% Marcaine plain, 0.5 cc of dexamethasone 4 mg per/mL and 0.5 cc of Kenalog 40 mg/mL were injected into the left plantar medial heel area. The patient tolerated the procedure well. Hemostasis was obtained with pressure. A Band-Aid was applied. We had already discussed previously at her last visit that if this does not work we will likely need to plan on either a [place] procedure with AmnioFix injection versus an endoscopic plantar fasciotomy. We are continuing to see and wait on [facility] to get her physical therapy approved through her insurance and the patient states they are working on that and she will try to follow up on that. If we can try and get some physical therapy in before considering surgery that would be ideal. Return to clinic in three to four weeks for followup to make sure if she is improving. If she is not improving we will definitely get x-rays at that time to make sure we are not missing anything in the heel. Carlos WhitakerP.M. (Dictated/not signed) /[employer] [id number] /mab MTDD
== END 2019-03-23 13:40 ==
LOC: POD 13:07
PROVIDERS: ATTEND Podiatrist Foot & Ankle Surgery
DX: M72.2 Plantar fascial fibromatosis (principal); M21.6X1 Other acquired deformities of right foot; M21.6X2 Other acquired deformities of left foot
CPT/HCPCS: 20550; 99212; A4554; J1100; J2001; J3301; J3490

== ENCOUNTER 2019-05-07 09:53 | Emergency (ER) | payer OTHER ==
--- NOTE | 2019-05-07 10:01 | ED Physician Documentation ---
General Adult - HISTORIAN Historian: patient - HPI Stated Complaint: congestion, fever, body aches started at 0300 Chief Complaint: Fever Onset: hours (6) Timing: better Severity: mild Further Comments: yes (She states she woke at 0300 with a fever of 100.0 and at 0400 she did take ibuprofen. She has body aches and sore throat as well as fatigue. No cough. No sick contacts no rash. No urinary complaints) - ROS CONST: fever EYES/ENT: nasal drainage, nasal congestion. denies: sore throat CVS/RESP: denies: chest pain, shortness of breath, cough MS/SKIN/LYMPH: none NEURO/PSYCH: headache - PAST HX Past History: other (fibromyalgia ) Immunizations: UTD Allergies/Adverse Reactions: Allergies Allergy/AdvReac Type Severity Reaction Status Date / Time sumatriptan [From Imitrex] Allergy Severe Anaphylaxis Verified 05/07/19 10:21 sumatriptan succinate Allergy Severe Anaphylaxis Verified 05/07/19 10:21 [From Imitrex] codeine Allergy Intermediate Nausea/Vomi Verified 05/07/19 10:21 ting hydrocodone bitartrate Allergy Intermediate Nausea/Vomi Verified 05/07/19 10:21 [From Vicodin] ting Penicillins Allergy Intermediate Nausea/Vomi Verified 05/07/19 10:21 ting Home Medications: Ambulatory Orders Medication Instructions Recorded Verapamil HCl [Verapamil Sr] 240 tab PO HS 28 Days #28 05/18/17 Gabapentin [Neurontin] 1 tab PO TID 07/14/18 Vilazodone HCl [Viibryd] 1 tab PO DAILY 07/14/18 Aripiprazole [Abilify] 10 mg PO DAILY 09/12/18 Ondansetron HCl Rapdis [Zofran Odt] 4 mg PO Q6 PRN #30 tab 11/05/18 - SOCIAL HX Smoking History: non-smoker Alcohol Use: none Drug Use: none - FAMILY HX Family History: No - VITAL SIGNS Vital Signs: Vital Signs Temp Pulse Resp BP Pulse Ox 134/84 12/31/18 10:12 - REVIEWED ASSESSMENTS Nursing Assessment Reviewed: Yes Vitals Reviewed: Yes General Adult Physical Exam - PHYSICAL EXAM GENERAL APPEARANCE: no distress EENT: eye inspection normal, ENT inspection normal, pharynx normal, no signs of dehydration, ALYX, TM's nml NECK: normal inspection RESPIRATORY: no resp distress, chest non-tender, breath sounds normal CVS: reg rate & rhythm, heart sounds normal, equal pulses ABDOMEN: soft, normal bowel sounds, no distension BACK: normal inspection, no CVA tenderness SKIN: warm/dry EXTREMITIES: non-tender, normal range of motion, no evidence of injury, no edema NEURO: oriented X3, CN's nml as tested Discharge Clincal Impression: Fever Qualifiers: Fever type: unspecified Qualified Code(s): R50.9 - Fever, unspecified Referrals: Joss Peña MD [Primary Care Provider] - 2 Days Comments: 1. OTC Meds as directed as needed for symptom management 2. Follow up with PCP In 2-4 days if needed 3. Increase fluids 4. Rest 5. Return to ER for any increased concerns Condition: Stable Disposition: 01 HOME, SELF-CARE Decision to Admit: NO Date of Decison to Admit: 05/07/19 Decision Time: 10:38
[2019-05-07 10:48] VITALS: BP 113/70
== END 2019-05-07 10:45 | disposition home or self-care (01) ==
LOC: ED 09:53
DX: R50.9 Fever, unspecified (principal)
CPT/HCPCS: 87070; 87400; 87880; 99281; 99282

== ENCOUNTER 2019-06-16 10:44 | Emergency (ER) | payer OTHER ==
--- NOTE | 2019-06-16 11:09 | ED Physician Documentation ---
Nausea/Vomiting/Diarrhea - HISTORIAN Historian: patient - HPI Stated Complaint: N/V Chief Complaint: Nausea,Vomiting,Diarrhea Additional Information: Patient presents to ED with a 24 hour history of nausea/vomiting associated with RUQ pain. Patient states her father had similar symptoms last week. Onset: hours (24) Duration: waxing, waning Timing: sudden onset Context: denies: out of country travel, bad food Severity: moderate - Associated Symptoms Vomiting: bilious Diarrhea: other (none) Abdominal Pain: cramping, RUQ - ROS CONST: denies: fever, chills CVS/RESP: denies: shortness of breath GI/: denies: constipation EYES/ENT: none NEURO/PSYCH: none - PAST HX Past History: none Surgeries/Procedures: none Allergies/Adverse Reactions: Allergies Allergy/AdvReac Type Severity Reaction Status Date / Time sumatriptan [From Imitrex] Allergy Severe Anaphylaxis Verified 06/16/19 10:56 sumatriptan succinate Allergy Severe Anaphylaxis Verified 06/16/19 10:56 [From Imitrex] codeine Allergy Intermediate Nausea/Vomi Verified 06/16/19 10:56 ting hydrocodone bitartrate Allergy Intermediate Nausea/Vomi Verified 06/16/19 10:56 [From Vicodin] ting Penicillins Allergy Intermediate Nausea/Vomi Verified 06/16/19 10:56 ting Home Medications: Ambulatory Orders Medication Instructions Recorded Verapamil HCl [Verapamil Sr] 240 tab PO HS 28 Days #28 05/18/17 Gabapentin [Neurontin] 1 tab PO TID 07/14/18 Vilazodone HCl [Viibryd] 1 tab PO DAILY 07/14/18 Aripiprazole [Abilify] 10 mg PO DAILY 09/12/18 Ondansetron HCl Rapdis [Zofran Odt] 4 mg PO Q6 PRN #30 tab 11/05/18 Ondansetron HCl Rapdis [Zofran Odt] 4 mg PO Q8 PRN #20 tab 06/16/19 - SOCIAL HX Smoking History: non-smoker Alcohol Use: none Drug Use: none - FAMILY HX Family History: none - VITAL SIGNS Vital Signs: Vital Signs Temp Pulse Resp BP Pulse Ox 98.1 F 89 19 128/79 95 06/16/19 10:52 06/16/19 10:52 06/16/19 10:52 06/16/19 10:52 06/16/19 10:52 - REVIEWED ASSESSMENTS Nursing Assessment Reviewed: Yes Vitals Reviewed: Yes ED Results Lab/Radiology - Lab Results Lab Results: Lab Results 06/16/19 06/16/19 11:24 11:24 WBC 10.00 K/ul K/ul (4.00-12.00) RBC 4.35 M/ul M/ul (3.90-5.20) Hgb 13.3 g/dL g/dL (11.5-16.0) Hct 39.0 % % (34.5-46.5) MCV 90.0 fl fl (80.0-100.0) MCH 30.5 pg pg (28.0-34.0) MCHC 34.0 g/dL g/dL (30.0-36.0) RDW 11.6 % % (11.3-14.3) Plt Count 348 K/mm3 K/mm3 (130-400) Neut % (Auto) 65.9 % % (39.0-79.0) Lymph % (Auto) 19.8 % % (16.0-50.0) [place] % (Auto) 8.9 % % (0.0-11.0) Eos % (Auto) 4.6 % % (0.0-6.8) Baso % (Auto) 0.8 % % (0.0-1.5) Neut # (Auto) 6.6 # k/uL # k/uL (1.4-7.7) Lymph # (Auto) 2.0 # k/uL # k/uL (0.6-4.0) [place] # (Auto) 0.9 # k/uL # k/uL (0.0-0.9) Eos # (Auto) 0.5 # k/uL # k/uL (0.0-0.6) Baso # (Auto) 0.1 # k/uL # k/uL (0.0-0.5) Sodium 141 mmol/L mmol/L (137-145) Potassium 3.9 mmol/L mmol/L (3.5-5.1) Chloride 109 mmol/L H mmol/L (98-107) Carbon Dioxide 23 mmol/L mmol/L (22-30) Anion Gap 12.9 BUN 11 mg/dL mg/dL (7-17) Creatinine 0.70 mg/dL mg/dL (0.52-1.04) Estimated Creat Clear 277 Est GFR ( Amer) > 60 (60 - ) Est GFR (Non-Af Amer) > 60 (60 - ) Glucose 104 mg/dL mg/dL (74-106) Calcium 8.7 mg/dL mg/dL (8.4-10.2) Total Bilirubin 0.6 mg/dL mg/dL (0.2-1.3) AST 83 U/L H U/L (15-46) ALT 25 U/L U/L (4-35) Alkaline Phosphatase 64 U/L U/L (38-126) Total Protein 6.6 g/dL g/dL (6.3-8.2) Albumin 4.0 g/dL g/dL (3.5-5.0) - Radiology Radiology Impressions: Report Submission Date: Jun 16, 2019 12:17:11 PM PILE DRIVER OPERATOR Patient Study Name: ADRIAN CAPUTO Date: Jun 16, 2019 11:39:41 AM PILE DRIVER OPERATOR Modality Type: DX Gender: F Description: ABD SERIES PA CHEST : 88 Institution: [facility] Physician: AUNG ZELAYA Examination: Obstruction series History: VOMITING, RUQ PAIN X 1 DAY Findings: 4 views obtained of the chest and abdomen. Single prominent loop of small bowel within the right midabdomen. Air and stool throughout the large bowel. No suspicious calcification projecting over the renal fossa or the lower pelvic region. Osseous structures are appropriate for age. Lower pelvic IUD in place. Surgical clips right upper quadrant. No focal consolidative process or blunting of the costophrenic margins. Impression: Single prominent loop of small bowel within the right midabdomen. No focal consolidation or effusion. No suspicious calcifications by plain film sensitivity. Electronically signed on Jun 16, 2019 12:17:11 PM PILE DRIVER OPERATOR by: Renato Olvera - Orders Orders: ED Orders Category Date Time Status Place IV Lock 1T Care 06/16/19 11:07 Active ABD SERIES [ABD SERIES PA CHEST] [RAD] Stat Exams 06/16/19 Completed CBC/PLATELET/DIFF Routine Lab 06/16/19 11:24 Completed CMP Routine Lab 06/16/19 11:24 Completed 0.9 % Sodium Chloride [Normal Saline] 1,000 ml Med 06/16/19 11:07 Discontinued IV Q1H Ketorolac Tromethamine [Toradol] Med 06/16/19 12:10 Discontinued 30 mg IV NOW ONE Ondansetron HCl/Pf [Zofran] Med 06/16/19 11:07 Discontinued 4 mg IVP NOW ONE Nausea Physical Exam - EXAM General Appearance: no acute distress, alert EENT: ALYX Neck: supple Respiratory: no resp distress, chest non-tender, breath sounds normal CVS: reg rate & rhythm, heart sounds normal Abdomen: non-tender. No: tenderness Back: non-tender Skin: warm/dry Extremities: non-tender, no evidence of injury, no edema Neuro/Psych: oriented X3, motor nml Discharge Clincal Impression: Viral gastroenteritis Prescriptions: Ondansetron HCl Rapdis [Zofran Odt] 4 mg PO Q8 PRN #20 tab PRN Reason: nausea/vomiting Referrals: Joss Peña MD [Primary Care Provider] - 2 Days Additional Instructions: 1. Zofran every 8 hours as needed for nausea 2. Tylenol and/or Ibuprofen as needed for pain/fever 3. Drink plenty of fluids to maintain proper hydration 4. Follow up with PCP within 1 week 5. Return to ER for new or worsening symptoms Condition: Stable Disposition: 01 HOME, SELF-CARE Decision to Admit: NO Date of Decison to Admit: 06/16/19 Decision Time: 12:27
[2019-06-16] MEDS: 0.9 % SODIUM CHLORIDE 1,000 ML IV ONE (11:20)
[2019-06-16] MEDS: ONDANSETRON HCL/PF 4 MG/ 2ML VIAL IVP ONE (11:23)
[2019-06-16 11:25] LABS: BASOPHILS % 0.8 % (0.0-1.5); NEUTROPHILS # 6.6 # k/uL (1.4-7.7)
[2019-06-16 11:40] LABS: eGFR (Non-African) > 60
[2019-06-16] MEDS: KETOROLAC TROMETHAMINE 30 MG/1ML VIAL IV ONE (12:17)
--- NOTE | 2019-06-16 12:21 | Diagnostic Imaging Report ---
PATIENT MR#: [id number] PATIENT PATIENT NAME: ADRIAN CAPUTO DATE OF : 1990 REFERRING PHYSICIAN: Caren Ortiz EXAM DATE: 06/16/2019 ACCESSION NUMBER: [id number] EXAM DESCRIPTION: ABD SERIES PA CHEST Examination: Obstruction series History: VOMITING, RUQ PAIN X 1 DAY Findings: 4 views obtained of the chest and abdomen. Single prominent loop of small bowel within the right midabdomen. Air and stool throughout the large bowel. No suspicious calcification projecting over the renal fossa or the lower pelvic region. Osseous structures are appropriate for age. Lower pelvic IUD in place. Surgical clips right upper quadrant. No focal consolidative process or blunting of the costophrenic margins. Impression: Single prominent loop of small bowel within the right midabdomen. No focal consolidation or effusion. No suspicious calcifications by plain film sensitivity. Read by: Dr. Renato Olvera Transcribed by: Transcribed Date: Electronically signed by: Dr. Renato Olvera Date signed: 06/16/2019 12:21:14 PM
[2019-06-16 12:41] VITALS: BP 108/83
== END 2019-06-16 12:40 | disposition home or self-care (01) ==
LOC: ED 10:44
DX: A08.4 Viral intestinal infection, unspecified (principal)
CPT/HCPCS: 74022; 80053; 85025; 96374; 96375; 99284; J1885; J2405; J7030; S1016